=== PATIENT | male | born 1960 | race Two or more races ===

== ENCOUNTER → 2017-05-06 | Emergency (ER) | payer OTHER ==
[~2017-05-06] VITALS: Ht 175.3 cm; Wt 79.4 kg
[~2017-05-06] MED LIST: BENZONATATE100 MG; DIOVAN320 MG; KETO10TA2 PO; TAMS0.4C PO
== END | disposition home or self-care (01) ==
LOC: ER 23:04
DX: R10.32 Left lower quadrant pain (principal)

== ENCOUNTER 2019-10-15 14:25 | Emergency (ER) | payer OTHER ==
[~2019-10-15] VITALS: Ht 177.8 cm; Wt 86.2 kg
[2019-10-15] MEDS ORDERED: CRESTOR5 MG (14:34)
[2019-10-15] MEDS ORDERED: HYZAAR 100-251 EACH (14:34)
[2019-10-15] MEDS ORDERED: FORTAMET500 MG (14:35)
[2019-10-15] MEDS ORDERED: KLOR-CON M1010 MEQ (14:35)
== END 2019-10-15 21:53 | disposition home or self-care (01) ==
LOC: ER 14:25
DX: R10.84 Generalized abdominal pain (principal)

== ENCOUNTER 2019-10-16 04:25 | Inpatient (IN) | payer OTHER ==
[~2019-10-16] VITALS: Ht 177.8 cm; Wt 86.2 kg
[~2019-10-16 04:25] MED LIST changes: +CRESTOR5 MG; +FORTAMET500 MG; +HYZAAR 100-251 EACH; +KLOR-CON M1010 MEQ
== END 2019-10-18 18:04 | disposition home or self-care (01) | DRG 661 ==
LOC: ER 04:25 → SEC-K 08:45 → SURG 08:45
PROVIDERS: ADMIT Urology; ATTEND Urology
PROC: 0T778DZ Dilation of Left Ureter with Intraluminal Device, Via Natural or Artificial Opening Endoscopic (ICD-10-PCS; principal; 2019-10-17 12:15)
DX: N20.1 Calculus of ureter (principal); R10.32 Left lower quadrant pain

== ENCOUNTER 2020-01-02 13:17 | Inpatient (IN) | payer OTHER ==
[~2020-01-02] VITALS: Ht 177.8 cm; Wt 81.6 kg
[2020-01-10] MEDS ORDERED: LOSARTAN POTASS50 MG PO (15:54)
[2020-01-10] MEDS ORDERED: INTESTINEX680 M1 PO (15:54)
[2020-01-10] MEDS ORDERED: AMOX-CLAV 875-1 EACH PO (15:54)
[2020-01-10] MEDS ORDERED: TAMS0.4C PO (15:54)
[2020-01-10] MEDS ORDERED: POM (MEDICAMENTO EN PO (15:54)
== END 2020-01-10 18:16 | disposition home or self-care (01) | DRG 690 ==
LOC: ER 13:17 → SEC-K 19:42 → MEDI 19:42
PROVIDERS: ADMIT Internal Medicine; ATTEND Internal Medicine
PROC: BW21ZZZ Computerized Tomography (CT Scan) of Abdomen and Pelvis (ICD-10-PCS; 2020-01-02)
PROC: B24BZZZ Ultrasonography of Heart with Aorta (ICD-10-PCS; principal; 2020-01-04)
DX: N13.6 Pyonephrosis (principal); N20.2 Calculus of kidney with calculus of ureter; R78.81 Bacteremia; E86.0 Dehydration; N17.9 Acute kidney failure, unspecified; E78.5 Hyperlipidemia, unspecified; D69.6 Thrombocytopenia, unspecified; E11.65 Type 2 diabetes mellitus with hyperglycemia; B96.20 Unspecified Escherichia coli [E. coli] as the cause of diseases classified elsewhere; I12.9 Hypertensive chronic kidney disease with stage 1 through stage 4 chronic kidney disease, or unspecified chronic kidney disease; N18.9 Chronic kidney disease, unspecified; Z79.84 Long term (current) use of oral hypoglycemic drugs; Z20.828 Contact with and (suspected) exposure to other viral communicable diseases

== ENCOUNTER 2020-02-01 08:30 | Inpatient (IN) | payer OTHER ==
[~2020-02-01] VITALS: Ht 177.8 cm; Wt 78.9 kg
[~2020-02-01 08:30] MED LIST changes: +AMOX-CLAV 875-1 EACH PO; +INTESTINEX680 M1 PO; +LOSARTAN POTASS50 MG PO; +POM (MEDICAMENTO EN PO
[2020-02-06] MEDS ORDERED: LOSARTAN POTASS50 MG PO (18:22)
[2020-02-06] MEDS ORDERED: LIPITOR20 MG PO (18:22)
[2020-02-06] MEDS ORDERED: TAMS0.4C PO (18:22)
== END 2020-02-06 18:35 | disposition home or self-care (01) | DRG 661 ==
LOC: ER 08:30 → SURG 17:39
PROVIDERS: Urology; ADMIT Internal Medicine; ATTEND Internal Medicine
PROC: 0TF78ZZ Fragmentation in Left Ureter, Via Natural or Artificial Opening Endoscopic (ICD-10-PCS; 2020-02-04)
PROC: 3E0F7SF Introduction of Other Gas into Respiratory Tract, Via Natural or Artificial Opening (ICD-10-PCS; 2020-02-04)
PROC: 0T778DZ Dilation of Left Ureter with Intraluminal Device, Via Natural or Artificial Opening Endoscopic (ICD-10-PCS; principal; 2020-02-04 07:00)
DX: N13.6 Pyonephrosis (principal); I10 Essential (primary) hypertension; E78.49 Other hyperlipidemia; D69.6 Thrombocytopenia, unspecified; E11.65 Type 2 diabetes mellitus with hyperglycemia; Z79.4 Long term (current) use of insulin; N17.8 Other acute kidney failure; E86.0 Dehydration; B96.29 Other Escherichia coli [E. coli] as the cause of diseases classified elsewhere; Z20.828 Contact with and (suspected) exposure to other viral communicable diseases

== ENCOUNTER 2020-02-13 17:00 | Emergency (ER) | payer OTHER ==
[~2020-02-13] VITALS: Ht 177.8 cm; Wt 76.7 kg
[~2020-02-13 17:00] MED LIST changes: +LIPITOR20 MG PO
== END 2020-02-13 21:21 | disposition home or self-care (01) ==
LOC: ER 17:00
DX: U07.1 COVID-19 (principal)

== ENCOUNTER 2020-04-04 20:50 | Emergency (ER) | payer OTHER ==
[~2020-04-04] VITALS: Ht 177.8 cm; Wt 81.6 kg
[2020-04-05] MEDS ORDERED: DRAMAMINE LESS25 MG PO (02:46)
== END 2020-04-05 02:52 | disposition home or self-care (01) ==
LOC: ER 20:50
DX: R42 Dizziness and giddiness (principal); B34.9 Viral infection, unspecified; Z03.818 Encounter for observation for suspected exposure to other biological agents ruled out